=== PATIENT | female | born 1970 | race Caucasian/White ===

== ENCOUNTER 2018-09-05 08:50 | Emergency (ER) | payer OTHER ==
[~2018-09-05] VITALS: Ht 154.9 cm; Wt 55.8 kg
[2018-09-05 08:59] VITALS: BP 123/87; Ht 154.9 cm; Wt 55.8 kg
== END 2018-09-05 09:50 | disposition home or self-care (01) ==
LOC: ED 08:50
DX: L25.9 Unspecified contact dermatitis, unspecified cause (principal); Z90.710 Acquired absence of both cervix and uterus

== ENCOUNTER 2020-02-18 18:32 | Emergency (ER) | payer OTHER ==
[~2020-02-18] VITALS: Ht 154.9 cm; Wt 58.1 kg
[2020-02-18 18:55] VITALS: BP 143/54
== END 2020-02-18 19:02 | disposition home or self-care (01) ==
LOC: ED 18:32
DX: H10.9 Unspecified conjunctivitis (principal); Z90.710 Acquired absence of both cervix and uterus; Z90.49 Acquired absence of other specified parts of digestive tract